=== PATIENT | female | born 1980 | race Two or more races ===

== ENCOUNTER 2018-03-25 22:55 | Emergency (ER) | payer MEDICAID ==
[2018-03-25 23:01] VITALS: BMI 36.6
[2018-03-25 23:11] VITALS: BP 117/56; PULSE 84; RESP 18; TEMP 98; O2SAT 100
--- NOTE | 2018-03-25 23:32 | ED PDOC ---
Arrival/HPI - General Historian: Patient <Anyi Agee A - Last Filed: 03/26/18 02:58> <Syd Marquez - Last Filed: 03/26/18 20:43> - General Chief Complaint: Lower Extremity Problem/Injury Time Seen by Provider: 03/25/18 23:07 - History of Present Illness Narrative History of Present Illness (Text): 03/25/18 23:28 37yo female with no pmhx bib EMS for complaint of right ankle/foot pain s/p trauma 2weeks ago. States she twisted her ankle two weeks ago and was seen [place] [facility] [place] states ankle xray was negative and she was told she have a sprain. She states she did everything she was supposed to do, but the swelling and pain became worse. She reports pain with ambulation or palpation. Takes Ibuprofen for the pain without relieve. (Anyi Agee A) Past Medical History - Provider Review Nursing Documentation Reviewed: Yes - Psychiatric Hx Substance Use: No - Anesthesia Hx Anesthesia: No <Anyi Agee - Last Filed: 03/26/18 02:58> Family/Social History - Physician Review Nursing Documentation Reviewed: Yes Family/Social History: Unknown Family HX Smoking Status: Never Smoked Hx Alcohol Use: No Hx Substance Use: No <Anyi Agee A - Last Filed: 03/26/18 02:58> Allergies/Home Meds <Anyi Agee A - Last Filed: 03/26/18 02:58> <Syd Marquez - Last Filed: 03/26/18 20:43> Allergies/Adverse Reactions: Allergies docusate [From Colace] Allergy (Verified 03/25/18 23:01) RASH Home Medications: Home Meds Medication Instructions Recorded Confirmed Acetaminophen [Tylenol 325mg tab] 650 mg PO PRN PRN 03/25/18 03/25/18 Cyclobenzaprine [Flexeril] 10 mg PO PRN PRN 03/25/18 03/25/18 Ibuprofen [Motrin Tab] 400 mg PO PRN PRN 03/25/18 03/25/18 Review of Systems - Physician Review All systems were reviewed & negative as marked: Yes - Review of Systems Constitutional: Normal Eyes: Normal ENT: Normal Respiratory: Normal Cardiovascular: Normal Gastrointestinal: Normal Genitourinary Female: Normal Musculoskeletal: Arthralgias (Right ankle/foot) Skin: Normal Neurological: Normal Endocrine: Normal Hemo/Lymphatic: Normal Psychiatric: Normal <Anyi Agee A - Last Filed: 03/26/18 02:58> Physical Exam Vital Signs Reviewed: Yes Temperature: Afebrile Blood Pressure: Normal Pulse: Regular Respiratory Rate: Normal Appearance: Positive for: Well-Appearing, Non-Toxic, Comfortable Pain Distress: None Mental Status: Positive for: Alert and Oriented X 3 - Systems Exam Head: Present: Atraumatic, Normocephalic Pupils: Present: PERRL Extroacular Muscles: Present: EOMI Conjunctiva: Present: Normal Mouth: Present: Moist Mucous Membranes Neck: Present: Normal Range of Motion Respiratory/Chest: Present: Clear to Auscultation, Good Air Exchange. No: Respiratory Distress, Accessory Muscle Use Cardiovascular: Present: Regular Rate and Rhythm, Normal S1, S2. No: Murmurs Abdomen: No: Tenderness, Distention, Peritoneal Signs Back: Present: Normal Inspection Upper Extremity: Present: Normal Inspection. No: Cyanosis, Edema Lower Extremity: Present: NORMAL PULSES, Normal ROM (With pain), Tenderness ( right lateral malleolus and proximal dorsal foot), Swelling (Right lateral malleolus), Neurovascularly Intact. No: Edema Neurological: Present: GCS=15, CN II-XII Intact, Speech Normal Skin: Present: Warm, Dry, Normal Color. No: Rashes Psychiatric: Present: Alert, Oriented x 3, Normal Insight, Normal Concentration <Anyi Agee A - Last Filed: 03/26/18 02:58> Vital Signs Temp Pulse Resp BP Pulse Ox 03/25/18 23:10 98.0 F 84 18 117/56 L 100 Medical Decision Making <Anyi Agee A - Last Filed: 03/26/18 02:58> <Syd Marquez - Last Filed: 03/26/18 20:43> ED Course and Treatment: 03/26/18 02:59 Pt presented for stated history. Right ankle CT FINDINGS: Bones/joints: No acute fracture. No dislocation. Soft tissues: Subcutaneous tissue infiltrative changes are present with fluid/ soft tissue swelling of the lateral malleolus. IMPRESSION: 1. Subcutaneous tissue infiltrative changes are present with fluid/soft tissue swelling of the lateral malleolus. 2. No acute fracture. Result was DW the pt. Air cast was placed and rc of Ibuprofen 600mg given. she notes that she have crutches that was given 2weeks ago by [facility] [place]. She was advised to RICE foot and referred to ortho. 03/26/18 03:00 (Anyi Agee) a review of [place] [facility] reveals numerous rx for narcotics, recently on march 14 03/26/18 20:41 (Syd Marquez) - RAD Interpretation Radiology Orders: 03/25/18 23:26 EXT LOWER W/O CONTRAST RIGHT [CT] Stat - Medication Orders Current Medication Orders: Discontinued Medications Ketorolac Tromethamine (Toradol) 60 mg IM STAT STA Stop: 03/26/18 00:30 Last Admin: 03/26/18 00:50 Dose: 60 mg MAR Pain Assessment Document 03/26/18 00:50 SS (Rec: 03/26/18 00:50 SS [id number]) Pain Reassessment Is this a pain reassessment? No Sleep Is patient sleeping during reassessment? No Presence of Pain Presence of Pain Yes Pain Scale Used Pain Scale Used Numeric Location Left, Right or Bilateral Right Pain Location Body Site Ankle Foot Description Description Constant IM Administration Charges Document 03/26/18 00:50 SS (Rec: 03/26/18 00:50 SS [id number]) Injection Site MAR Injection Site Left Deltoid Charges for Administration # of IM Administrations 1 - PA / [employer] / Resident Statement MD/DO has reviewed & agrees with the documentation as recorded. <Syd Marquez - Last Filed: 03/26/18 20:43> Disposition/Present on Arrival - Present on Arrival Any Indicators Present on Arrival: No History of DVT/PE: No History of Uncontrolled Diabetes: No Urinary Catheter: No History of Decub. Ulcer: No History Surgical Site Infection Following: None - Disposition Have Diagnosis and Disposition been Completed?: Yes Disposition Time: 02:35 Patient Plan: Discharge <Anyi Agee - Last Filed: 03/26/18 02:58> - Present on Arrival Any Indicators Present on Arrival: No - Disposition Have Diagnosis and Disposition been Completed?: Yes <Syd Marquez - Last Filed: 03/26/18 20:43> - Disposition Diagnosis: Ankle sprain Disposition: HOME/ ROUTINE Condition: STABLE Discharge Instructions (ExitCare): Ankle Sprain (DC) Additional Instructions: Follow up with your doctor/Orthopedist Rest, ice, compress and elevate ankle Return to ED for new symptoms Prescriptions: Ibuprofen [Motrin Tab] 600 mg PO Q6 #15 tab Referrals: Santy Hernandez MD [Staff Provider] - Follow up with primary Forms: [employer] ([place])
--- NOTE | 2018-03-26 11:13 | CT ---
PROCEDURE: HISTORY: Right ankle/foot pain s/p trauma COMPARISON: TECHNIQUE: FINDINGS: No fracture. Dorsal lateral soft tissue swelling compatible with soft tissue contusion. IMPRESSION: As above.
== END 2018-03-26 02:32 | disposition home or self-care (01) ==
LOC: ED 22:55
DX: S93.401D Sprain of unspecified ligament of right ankle, subsequent encounter (principal); X50.1XXD Overexertion from prolonged static or awkward postures, subsequent encounter
CPT/HCPCS: 73700; 96372; 99283; J1885